=== PATIENT | male | born 1990 ===

== ENCOUNTER 2019-09-04 19:45 | Emergency (ER) | payer MEDICARE, MEDICAID ==
[~2019-09-04] VITALS: Ht 188 cm; Wt 131.8 kg
[2019-09-04 19:50] VITALS: BP 151/96
[2019-09-04] MEDS ORDERED: CEPH250T PO (21:28)
[2019-09-04] MEDS ORDERED: LIDOcaine 1% w/EPI 1:200,000 injection 10mL vial IM ONE (21:40)
[2019-09-04] MEDS ORDERED: LIDOcaine 1% w/epiNEPHrine 1:200,000 30ml vial IM ONE (21:50)
== END 2019-09-04 22:22 | disposition home or self-care (01) ==
LOC: ER 19:46
DX: L03.011 Cellulitis of right finger (principal); Z79.2 Long term (current) use of antibiotics
CPT/HCPCS: 10060; 99283